=== PATIENT | female | born 1990 | race Caucasian/White ===

== ENCOUNTER 2017-04-03 16:06 | Emergency (ER) | payer MEDICAID ==
[~2017-04-03] VITALS: Ht 165.1 cm; Wt 63.0 kg
[~2017-04-03 16:06] MED LIST: ANXIETY MED; BLOOD PRESSURE; CARAFATE 1 GM TA1 G1 PO; CHLORTHALIDONE 25MG PO; CIPRO250 M1 PO; DOXYCYCLINE 10100 M1 PO; HYDROCHLOROTHIA25 M1 PO; HYDROXYZINE HCL50 MG PO; LATUDA80 MG PO; NOHOMEMEDICATIONS; PEPCID AC20 M1 PO; PROAIR HFA8.5 GM IH; PROTONIX40 M2 PO; PYRIDIUM200 MG PO; RISPERDAL 1 MG T1 MG PO; RISPERDAL0.25 MG; TRAMADOL 50 MG50 MG PO; ULTRAM 50MG TAB50 MG PO
[2017-04-03] MEDS ORDERED: GABAPENTIN 100100 MG PO (16:28)
[2017-04-03] MEDS ORDERED: LAMICTAL100 MG PO (16:29)
[2017-04-03] MEDS ORDERED: TRAZODONE HCL100 MG PO (16:29)
[2017-04-03] MEDS ORDERED: PREDNISONE 20 M20 M1 PO (16:48)
[2017-04-03] MEDS ORDERED: PROAIR HFA8.5 GM INH (16:48)
[2017-04-03] MEDS ORDERED: ZPAK PO (16:50)
[2017-04-03 17:02] VITALS: BP 144/100
== END 2017-04-03 17:03 | disposition home or self-care (01) ==
LOC: M.ERS 16:06
DX: J20.9 Acute bronchitis, unspecified (principal); J45.909 Unspecified asthma, uncomplicated; I10 Essential (primary) hypertension; F20.9 Schizophrenia, unspecified; F17.200 Nicotine dependence, unspecified, uncomplicated; Z88.1 Allergy status to other antibiotic agents; Z88.0 Allergy status to penicillin

== ENCOUNTER 2017-04-20 17:18 | Emergency (ER) | payer MEDICAID ==
[~2017-04-20] VITALS: Ht 165.1 cm; Wt 65.3 kg
[~2017-04-20 17:18] MED LIST changes: +GABAPENTIN 100100 MG PO; +LAMICTAL100 MG PO; +PREDNISONE 20 M20 M1 PO; +PROAIR HFA8.5 GM INH; +TRAZODONE HCL100 MG PO; +ZPAK PO
[2017-04-20 19:08] LABS: URINE BILIRUBIN NEGATIVE (Negative); URINE BLOOD NEGATIVE (Negative); URINE CLARITY CLEAR; URINE COLOR YELLOW; URINE GLUCOSE-RANDOM NEGATIVE (Negative); URINE KETONES NEGATIVE (Negative); URINE LEUKOCYTES-REFLEX NEGATIVE (Negative); URINE NITRITE-REFLEX NEGATIVE (Negative); URINE PROTEIN NEGATIVE (Negative); URINE SPECIFIC GRAVITY 1.015 (1.005-1.030); URINE UROBILINOGEN 0.2 E.U./dl (0.2-1.0)
[2017-04-20 21:01] LABS: ABSOLUTE EOSINOPHILS 0.1 thou/uL (0.0-0.7); ABSOLUTE LYMPHOCYTES 1.8 thou/uL (0.8-5.3); ABSOLUTE MONOCYTES 0.5 thou/uL (0.0-1.2); ABSOLUTE NEUTROPHILS 4.1 thou/uL (1.6-8.1); BASOPHILS 0.6 %; EOSINOPHILS 1.4 %; HEMATOCRIT 40.9 % (37.0-47.0); LYMPHOCYTES 27.1 %; MCH 31.7 pg (26.0-34.0); MCHC 34.3 g/dL (28.0-37.0); MCV 92.6 fL (80.0-100.0); MONOCYTES 8.3 %; MPV 9.2 fl. (7.2-11.1); NUCLEATED RBCS 0 /100WBC; PLATELET COUNT* 216 thou/uL (150-400); POLYS 62.6 %; RBC 4.41 mil/uL (4.20-5.00); RDW-CV 13.4 % (10.5-14.5); WBC 6.6 thou/uL (4.0-11.0)
[2017-04-20 21:11] LABS: CALCIUM 8.6 mg/dL (8.5-10.1); CREATININE 0.7 mg/dL (0.6-1.3); POTASSIUM 3.8 mmol/L (3.5-5.1)
[2017-04-20 21:18] LABS: ALBUMIN 3.6 g/dL (3.4-5.0); TOTAL BILIRUBIN 0.4 mg/dL (<0.1-1.0); TOTAL PROTEIN 6.8 g/dL (6.4-8.2)
[2017-04-20 21:51] VITALS: BP 142/89
== END 2017-04-20 21:51 | disposition home or self-care (01) ==
LOC: M.ERS 17:18
PROVIDERS: Nurse Practitioner Family; Physician Assistant
DX: R10.84 Generalized abdominal pain (principal); J20.9 Acute bronchitis, unspecified; J45.909 Unspecified asthma, uncomplicated; I10 Essential (primary) hypertension; F20.9 Schizophrenia, unspecified; Z88.0 Allergy status to penicillin; Z88.8 Allergy status to other drugs, medicaments and biological substances